=== PATIENT | female | born 1990 | race Caucasian/White ===

== ENCOUNTER 2017-01-01 07:56 | Emergency (ER) | payer MEDICARE | END 2017-01-01 08:40 | disposition short-term general hospital (02) | LOC: ER 07:56 | DX: Z02.89 Encounter for other administrative examinations (principal); F17.210 Nicotine dependence, cigarettes, uncomplicated; R00.0 Tachycardia, unspecified; Z88.0 Allergy status to penicillin; Z88.2 Allergy status to sulfonamides | CPT/HCPCS: 93005; 99283-25 ==